=== PATIENT | male | born 1990 | race Two or more races ===

== ENCOUNTER 2022-11-02 23:33 | Emergency (ER) | payer OTHER ==
[~2022-11-02] VITALS: Ht 165.1 cm; Wt 59.0 kg
--- NOTE | 2022-11-03 | NUR ---
pt taken to CT
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
--- NOTE | 2022-11-03 00:25 | NUR ---
pt returned from ct scan, [employer] at bedside
[2022-11-03 01:09] VITALS: BP 142/94; TEMP 98.2; O2SAT 98
--- NOTE | 2022-11-03 01:19 | NUR ---
PT MEDICALLY CLEARED TO BOOK. DISCHARGED WITH [employer] IN STABLE CONDITION.
== END 2022-11-03 01:19 ==
LOC: ER 23:40
DX: F10.129 Alcohol abuse with intoxication, unspecified (principal); M54.2 Cervicalgia; R51.9 Headache, unspecified; Y90.9 Presence of alcohol in blood, level not specified; V89.2XXA Person injured in unspecified motor-vehicle accident, traffic, initial encounter; Y93.89 Activity, other specified; Y92.89 Other specified places as the place of occurrence of the external cause; Y99.8 Other external cause status
CPT/HCPCS: 70450-TC; 72125-TC